=== PATIENT | female | born 1945 | race Caucasian/White ===

== ENCOUNTER 2022-09-29 07:54 | Inpatient (IN) | payer BC ==
[~2022-09-29] VITALS: Ht 210.8 cm; Wt 43.5 kg
--- NOTE | 2022-09-29 08:03 | NUR ---
TO ER BED 5. BIB [facility] FROM HOME FOR ABDOMINAL PAIN PT STATED SHE HAS HAD ABDOMINAL PAIN FOR MONTH BUT IT BECAME WORSE THIS MORNING, HX OF STAGE 4 PANCREATIC CANCER. A&OX4. PT STATES PAIN IS 10/10 PAIN IS DIFFUSE. PT ATTACHED TO MONITOR AND HYPOTENSIVE, RECIEVED 300CC OF FLUID PRIOR TO ARRIVAL BY EMS. WARM BLANKET PROVIDED FOR COMFORT. PLACED IN HOSPITAL GOWN. DR WINCHESTER AT BEDSIDE, AWAITING MD ORDERS.
[2022-09-29] MEDS ORDERED: ONDANSETRON HCL/PF 4 MG/2 ML VIAL ONE (08:11)
[2022-09-29] MEDS ORDERED: HYDROMORPHONE 1 MG/1 ML DISP.SYRIN ONE ×2 (08:12→09:02)
--- NOTE | 2022-09-29 08:18 | NUR ---
PT UNABLE TO PROVIDE URINE SAMPLE, STATED SHE WILL LET ME KNOW WHEN SHE NEED TO USE A BEDPAN.
--- NOTE | 2022-09-29 08:19 | NUR ---
LAB AT BEDSIDE
[2022-09-29] MEDS ORDERED: ONDANSETRON HCL/PF - ER 4 MG/2 ML VIAL IV ONE (08:30)
[2022-09-29] MEDS ORDERED: IV NS 0.9% 500 ML BAG IV ONE (08:30)
[2022-09-29] MEDS ORDERED: HYDROMORPHONE 1 MG/1 ML DISP.SYRIN IV ONE (08:30)
[2022-09-29 08:33] LABS: BASOPHILS % (AUTO) 0.1 % (0.0-2.0); EOSINOPHILS % (AUTO) 0.1 % (0.0-6.0); HEMATOCRIT 35 % (33-45); HEMOGLOBIN 11.5 g/dL (11.5-14.8); LYMPHOCYTES # (AUTO) 0.4 K/uL (0.8-4.8); LYMPHOCYTES % (AUTO) 6.2 % (20.0-44.0); MEAN CORPUSCULAR HGB CONC 33 g/dl (31.0-36.0); MEAN CORPUSCULAR VOLUME 99 fL (82-100); MONOCYTES # (AUTO) 0.6 K/uL (0.1-1.30); MONOCYTES % (AUTO) 8.2 % (2.0-12.0); NEUTROPHILS # (AUTO) 5.7 K/uL (1.8-8.9); NEUTROPHILS % (AUTO) 85.4 % (43.0-81.0); PLATELET COUNT (AUTO) 314 K/uL (150-450); RED BLOOD CELL COUNT(AUTO) 3.52 MIL/uL (4.0-5.2); WHITE BLOOD COUNT (AUTO) 6.7 K/uL (4.3-11.0)
--- NOTE | 2022-09-29 08:41 | NUR ---
X RAY AT BEDSIDE
[2022-09-29 08:45] LABS: CALCIUM, SERUM 8.6 mg/dL (8.5-10.1); CARBON DIOXIDE 18 mmol/L (21-32); CHLORIDE 100 mmol/L (98-107); CREATININE 1.2 mg/dL (0.6-1.3); GLUCOSE 140 mg/dL (74-106); POTASSIUM 3.3 mmol/L (3.5-5.1); SODIUM SERUM 134 mmol/L (136-145); UREA NITROGEN, BLOOD 23 mg/dL (7-18)
[2022-09-29 08:50] LABS: ALANINE AMINOTRANSFERASE 17 U/L (12-78); ALBUMIN 2.1 g/dL (3.4-5.0); ALKALINE PHOSPHATASE 102 U/L (46-116); ASPARTATE AMINOTRANSFERASE 15 U/L (15-37); BILIRUBIN,DIRECT 0.4 mg/dL (0.0-0.2); LIPASE 17 U/L (73-393); TOTAL PROTEIN, SERUM 6.3 g/dL (6.4-8.2)
[2022-09-29] MEDS ORDERED: DIPH1TAB PO (08:57)
[2022-09-29] MEDS ORDERED: AMYL1CAP54 PO (08:57)
[2022-09-29] MEDS ORDERED: MORP15TA7 PO (08:57)
[2022-09-29] MEDS ORDERED: OXYC10TA49 PO (08:57)
[2022-09-29] MEDS ORDERED: IV NS 0.9% 1,000 ML BAG IV ONE (09:00)
[2022-09-29] MEDS ORDERED: HYDROMORPHONE INJ 2 MG/ML DISP.SYRIN IV ONE (09:00)
--- NOTE | 2022-09-29 09:33 | NUR ---
DR BARGER AT BEDSIDE
--- NOTE | 2022-09-29 09:40 | NUR ---
PCP- NIRAJ NÚÑEZ [phone]
[2022-09-29] MEDS ORDERED: MAG HYDROX/AL HYDROX/SIMETH 30 ML UDC PO PRN (13:30)
[2022-09-29] MEDS ORDERED: MAGNESIUM HYDROXIDE 30 ML UDC PO PRN (13:30)
[2022-09-29] MEDS ORDERED: IV NS 0.9% 1,000 ML IV PRN (13:30)
[2022-09-29] MEDS ORDERED: ONDANSETRON HCL/PF 4 MG/2 ML VIAL IVP PRN (13:30)
[2022-09-29] MEDS ORDERED: Z GUARD REMEDY 4 OZ OINT TP PRN (13:30)
[2022-09-29] MEDS ORDERED: ACETAMINOPHEN 325 MG TABLET PO PRN (13:30)
--- NOTE | 2022-09-29 13:51 | NUR ---
ROOM 320-1
[2022-09-29 14:02] VITALS: O2SAT 96
--- NOTE | 2022-09-29 14:15 | NUR ---
REPORT GIVEN TO CONCHA FOR DEVAUGHN
--- NOTE | 2022-09-29 14:51 | NUR ---
PT TAKEN TO MED SURG VIA MAIDA
--- NOTE | 2022-09-29 15:26 | NUR ---
MEDICATION NOTE- WASTE I WITNESSED RN CONCHA WASTE .5 MG OF DILAUDID.
[2022-09-29] MEDS: HYDROMORPHONE INJ 2 MG/ML DISP.SYRIN IV PRN ×3 (15:28→23:58)
--- NOTE | 2022-09-29 15:28 | NUR ---
MS RN NOTE COMPLAINED OF ABDOMINAL PAIN 10/10. WITH ORDER FOR DILAUDID. WASTED MEDICATION WITH NURSE ALAN WITNESS. PROVIDED WITH CALM AND QUIET ENVIRONMENT.
--- NOTE | 2022-09-29 15:30 | NUR ---
MS ADMISSION NOTE RECEIVED PATIENT FROM ER, TRANSPORTED BY ER NURSES VIA GURNEY. PATIENT TRANSFERRED TO BED AND COMFORT MEASURES PROVIDED. PATIENT IS ALERT AND ORIENTED X 4, ABLE TO MAKE NEEDS KNOWN. PATIENT IS ON OXYGEN AT 2LPM VIA NASAL CANULA WITH NO RESPIRATORY DISTRESS NOTED SATURATING AT 97%. WITH IV ACCESS ON THE LEFT G 20, PATENT AND INTACT. WITH LEFT ARM INFUSION PORT THAT WAS PREVIOUSLY USED FOR CHEMOTHERAPY. ADMISSION QUESTIONS DONE AND ADMISSION INSTRUCTIONS GIVEN. VERBALIZED UNDERSTANDING. COMPLAINED OF PAIN WILL CHECK PAIN MEDICATION. TV TURNED ON FOR DISTRACTION. PROVIDED WITH CALM AND QUIET ENVIRONMENT. SAFETY MEASURES IN PLACE WITH BED IN LOWEST LOCK POSITION. SIDE RAILS UP X 2. BED ALARM ON. CALL LIGHT AND TABLE WITHIN EASY REACH. WILL CONTINUE WITH PLAN OF CARE.
--- NOTE | 2022-09-29 16:08 | NUR ---
MS RN NOTE PATIENT STILL COMPLAINED OF PAIN. LATEST BP 71/47, HR. 108. PATIENT IS ALERT AND ORIENTED. DR. BARGER NOTIFIED OF ADMISSION AND PATIENT'S REQUEST FOR PAIN MEDICATION AND THAT IT DOES NOT WORK FOR HER. MD ORDERS RECEIVED AND CARRIED OUT.
[2022-09-29] MEDS ORDERED: KETOROLAC TROMETHAMINE INJ 30 MG/ML VIAL IV ONE (16:30)
--- NOTE | 2022-09-29 16:40 | NUR ---
MS RN NOTE TORADOL GIVEN ORDERED FOR PAIN ORDERED. HEALTH TEACHING DONE REGARDING PAIN MANAGEMENT. VERBALIZED UNDERSTANDING AND APPRECIATION.
[2022-09-29] MEDS ORDERED: ENSURE ENLIVE CHOC 237 ML CAN PO SCH (17:00)
--- NOTE | 2022-09-29 19:20 | NUR ---
MS RN NOTE PATIENT ENDORSED TO NEXT SHIFT FOR CONTINUITY OF CARE.
--- NOTE | 2022-09-29 19:55 | NUR ---
MS RN NOTE PATIENT COMPLAINED OF PAIN ON ABDOMEN. MEDICATION TAKEN FROM OMNICEL AND WASTED WITH NURSE ALAN. UNABLE TO GIVE MEDICATION IMMEDIATELY BECAUSE PATIENT SAID IT IS NOT EFFECTIVE FOR HER BUT I WAS EXPLAINING TO HER THAT IT IS THE ONE ORDERED BY MD. AFTER MUCH EXPLANATION, SHE FINALLY AGREED TO GET THE MEDICATION. ENDORSED TO NEXT SHIFT.
--- NOTE | 2022-09-29 19:55 | NUR ---
MS RN OPENING NOTES RECEIVED PATIENT IN BED, WATCHING TV. A/O X 4, ABLE TO MAKE NEEDS KNOWN. C/O OF ABDOMINAL PAIN WITH PAIN LEVEL OF 10/10. ON 2L OXYGEN VIA NC, BREATHING EVEN AND UNLABORED, NO RESPIRATORY DISTRESS OR SOB NOTED AT THIS TIME. IV ACCESS LFA @20G RUNNING NS @ 75ML/HR. PATIENT HAS A LEFT ARM INFUSION PORT FOR CHEMO. SAFETY MEASURES IN PLACE WITH BED IN LOWEST LOCK POSITION. SIDE RAILS UP X 2. BED ALARM ON. CALL LIGHT AND TRAY WITHIN EASY REACH. WILL CONTINUE TO MONITOR THE PATIENT.
[2022-09-29 20:51] VITALS: BP 92/47; TEMP 96.5; O2SAT 95
[2022-09-29] MEDS ORDERED: MORPHINE SULFATE IR 15 MG TABLET PO SCH (21:30)
[2022-09-29] MEDS ORDERED: MORPHINE SULFATE SR 30 MG TABLET.SA PO SCH (21:30)
--- NOTE | 2022-09-29 21:40 | NUR ---
RN NOTES- MORPHINE 30MG PO GIVEN BID PATIENT STILL COMPLAINED OF PAIN. LATEST BP 92/47, HR. 94. DR. BERG NOTIFIED OF PATIENT'S REQUEST FOR PAIN MEDICATION. MORPHINE 30MG GIVEN BID PO. PATIENT IS ALERT AND ORIENTED. MD ORDERS RECEIVED AND CARRIED OUT.
--- NOTE | 2022-09-30 00:05 | NUR ---
RN NOTES- DILAUDID 1MG GIVEN PRN DILAUDID 1MG TAKEN FROM OMNICELL 1MG GIVEN AND WASTED 1MG WITNESSED BY RN CRISSY COHEN.
--- NOTE | 2022-09-30 00:05 | NUR ---
MS RN WITNESS NOTE I WITNESSED WASTING 1 MG DILAUDID OUT OF 2 MG. - CRISSY HA RN
[2022-09-30] MEDS: HYDROMORPHONE INJ 2 MG/ML DISP.SYRIN IV PRN (04:19)
--- NOTE | 2022-09-30 04:20 | NUR ---
MS RN NOTE WITNESSED FELIPE HOGUE RETRIEVE DILAUDID 2 MG FROM OMNICELL AND WASTE 1 MG IN RX DESTROYER. DILAUDID 1 MG IV GIVEN
--- NOTE | 2022-09-30 04:30 | NUR ---
RN NOTES- DILAUDID 1MG GIVEN PRN DILAUDID 1MG TAKEN FROM OMNICELL 1MG GIVEN AND WASTED 1MG WITNESSED BY FELIPE RODRÍGUEZ. BP 90/70 HR 98. WILL CONTINUE TO MONITOR THE PATIENT.
--- NOTE | 2022-09-30 05:10 | NUR ---
MS RN NOTES DOING PATIENT ROUNDS THEN FOUND THE PATIENT GASPING. INCREASED THE OXYGEN AND SUCTIONED THE PATIENT, PUT THE HOB ELEVATED STILL UNRESPONSIVE. 5:20 PATIENT IS NOT BREATHING, NO PULSE, NO RESPIRATION, PUPILS DILATED AND FIXED. PRONOUNCED . PATIENT IS DNR/DNI. MD NOTIFIED. FAMILY/ NEXT OF KIN NOTIFIED.
--- NOTE | 2022-09-30 05:30 | NUR ---
RN NOTES CALLED THE MORTUARY. WILL ENDORSE TO THE NEXT SHIFT.
[2022-09-30] MEDS ORDERED: POTASSIUM CL. PREMIX PERIPHER. 50 ML IV SCH (08:00)
--- NOTE | 2022-09-30 08:40 | NUR ---
RN NOTE- PATIENT PICKED UP BY [facility] AT THIS TIME. ESCORTED BY SECURITY.
[2022-09-30] MEDS ORDERED: MORPHINE SULFATE IR 15 MG TABLET PO SCH (09:00)
== END 2022-09-30 08:45 | DRG 436 ==
LOC: ER 07:56 → MED 14:00
PROVIDERS: ADMIT Internal Medicine; ATTEND Internal Medicine
DX: C25.9 Malignant neoplasm of pancreas, unspecified (principal); E44.0 Moderate protein-calorie malnutrition; Z51.5 Encounter for palliative care; E87.1 Hypo-osmolality and hyponatremia; E87.20 Acidosis, unspecified; Z68.1 Body mass index [BMI] 19.9 or less, adult; I10 Essential (primary) hypertension; Z66 Do not resuscitate; E87.6 Hypokalemia
CPT/HCPCS: 36415; 71045-TC; 80048-TC; 80076-TC; 83605-TC; 83690-TC; 85025-TC; 85730-TC; 87040-TC; A4223; G0378; J1170; J1885; J2405; J7030; J7040